=== PATIENT | male | born 1955 | race Caucasian/White ===

== ENCOUNTER 2018-01-08 18:38 | Emergency (ER) | payer OTHER ==
[~2018-01-08] VITALS: Ht 175.3 cm; Wt 126.0 kg
[2018-01-08 18:42] VITALS: BP 156/79
[2018-01-08 19:21] LABS: BASOPHILS # (AUTO) 0.03 x10^3/uL (0-0.1); BASOPHILS % (AUTO) 0 % (0-1); EOSINOPHILS # (AUTO) 0.13 x10^3/uL (0-0.4); EOSINOPHILS % (AUTO) 2 % (1-7); LYMPHOCYTES # (AUTO) 1.88 x10^3/uL (1-3.4); LYMPHOCYTES % (AUTO) 24 % (22-44); MD NO; MEAN CORPUSCULAR HEMOGLOBIN 30.9 pg (27.5-34.5); MEAN CORPUSCULAR HGB CONC 33.5 g/dL (33.2-36.2); MEAN CORPUSCULAR VOLUME 92.2 fL (81-97); MEAN PLATELET VOLUME 7.4 fL (7.4-10.4); MONOCYTES # (AUTO) 0.54 x10^3/uL (0.2-0.8); MONOCYTES % (AUTO) 7 % (2-9); NEUTROPHILS % (AUTO) 67 % (42-75); PLATELET COUNT 237 x10^3/uL (130-400); RED CELL DISTRIBUTION WIDTH 14.4 % (9.4-14.8)
[2018-01-08 19:28] LABS: ALANINE AMINOTRANSFERASE 32 U/L (12-78); ALBUMIN 3.2 g/dL (3.4-5.0); ANION GAP 10 mmol/L (5-15); CALCIUM 9.7 mg/dL (8.5-10.1); CHLORIDE 108 mmol/L (98-107); CREATININE 1.39 mg/dL (0.7-1.3)
[2018-01-08 19:35] LABS: ALKALINE PHOSPHATASE 58 U/L (45-117); BILIRUBIN,TOTAL 0.5 mg/dL (0.2-1.0); TOTAL PROTEIN 7.5 g/dL (6.4-8.2)
== END 2018-01-08 20:58 | disposition home or self-care (01) ==
LOC: ED 20:45
DX: L03.116 Cellulitis of left lower limb (principal)
CPT/HCPCS: 36415; 80053; 85025; 85651; 86140; 87040; 99285

== ENCOUNTER 2018-01-10 10:11 | Inpatient (IN) | payer OTHER ==
[~2018-01-10] VITALS: Ht 175.3 cm; Wt 127.9 kg
[2018-01-10] MEDS ORDERED: ROSU20TA PO (10:45)
[2018-01-10] MEDS ORDERED: TERA5CAP3 PO (10:45)
[2018-01-10] MEDS ORDERED: LOSA1TAB22 PO (10:45)
[2018-01-10] MEDS ORDERED: CHOL200074 PO (10:45)
[2018-01-10] MEDS ORDERED: ACYC-114 PO (10:45)
[2018-01-10] MEDS ORDERED: MELA3TAB2 PO (10:45)
[2018-01-10] MEDS ORDERED: LATA7.5D OP (10:45)
[2018-01-10] MEDS ORDERED: ALBU18HF INH (10:46)
[2018-01-10] MEDS ORDERED: SULF-169 PO (10:46)
[2018-01-10] MEDS ORDERED: [UNRECOGNIZED DRUG - CODE] TP (10:46)
[2018-01-10] MEDS ORDERED: AMPICILLIN/SULBACTAM 3 GM in SODIUM CHLORIDE 0.9% 100 ML IVPB ONE (11:00)
[2018-01-10 11:23] LABS: MD NO
[2018-01-10 11:34] LABS: ALBUMIN 3.2 g/dL (3.4-5.0); ANION GAP 9 mmol/L (5-15); CALCIUM 8.5 mg/dL (8.5-10.1); CHLORIDE 107 mmol/L (98-107); CREATININE 1.38 mg/dL (0.7-1.3)
[2018-01-10 11:59] LABS: BASOPHILS # (AUTO) 0.04 x10^3/uL (0-0.1); BASOPHILS % (AUTO) 1 % (0-1); EOSINOPHILS % (AUTO) 1 % (1-7); LYMPHOCYTES # (AUTO) 1.79 x10^3/uL (1-3.4); LYMPHOCYTES % (AUTO) 21 % (22-44); MEAN CORPUSCULAR HGB CONC 33.9 g/dL (33.2-36.2); MEAN CORPUSCULAR VOLUME 91.6 fL (81-97); MEAN PLATELET VOLUME 7.7 fL (7.4-10.4); MONOCYTES # (AUTO) 0.56 x10^3/uL (0.2-0.8); MONOCYTES % (AUTO) 7 % (2-9); NEUTROPHILS # (AUTO) 5.92 x10^3/uL (1.8-6.8); NEUTROPHILS % (AUTO) 70 % (42-75); PLATELET COUNT 280 x10^3/uL (130-400); RED CELL DISTRIBUTION WIDTH 14.4 % (9.4-14.8)
[2018-01-10 12:46] VITALS: BP 152/70
[2018-01-10] MEDS ORDERED: VANCOMYCIN PER PHARMACY MC PRN (14:30)
[2018-01-10] MEDS ORDERED: PHARMACY MAY ADJ FOR RENAL FX MC PRN (14:30)
[2018-01-10] MEDS ORDERED: OXYcodone IR 5MG TABLET PO PRN (15:00)
[2018-01-10] MEDS ORDERED: ACETAMINOPHEN 325 MG TABLET PO PRN (15:00)
[2018-01-10] MEDS: SODIUM CHLORIDE 0.9% 1,000 ML IV SCH (15:17)
[2018-01-10] MEDS: ENOXAPARIN 40 MG/0.4 ML SQ SCH (15:17)
[2018-01-10] MEDS ORDERED: PHARMACOKINETIC MONITORING MC PRN (15:30)
[2018-01-10] MEDS ORDERED: VANCOMYCIN 2,000 MG in SODIUM CHLORIDE 0.9% 500 ML IV SCH (16:00)
[2018-01-10] MEDS: LACTOBACILLUS CHEW TABLET PO SCH ×2 (16:34→21:20)
[2018-01-10 19:21] VITALS: BP 137/77
[2018-01-10] MEDS: TERAZOSIN 5MG CAPSULE PO SCH (21:11)
[2018-01-10] MEDS: AMPICILLIN/SULBACTAM 3 GM in SODIUM CHLORIDE 0.9% 100 ML IV SCH (21:11)
[2018-01-10] MEDS: MELATONIN 3 MG TABLET PO SCH (21:12)
[2018-01-10] MEDS: ATORVASTATIN 40 MG TABLET PO SCH (21:12)
[2018-01-10] MEDS: LATANOPROST OPHTH 0.005%, 2.5ML OP SCH (22:42)
[2018-01-11 01:38] VITALS: BP 128/75
[2018-01-11] MEDS: AMPICILLIN/SULBACTAM 3 GM in SODIUM CHLORIDE 0.9% 100 ML IV SCH ×4 (03:00→21:10)
[2018-01-11] MEDS: SODIUM CHLORIDE 0.9% 1,000 ML IV SCH ×2 (03:04→21:11)
[2018-01-11 05:06] LABS: BASOPHILS # (AUTO) 0.04 x10^3/uL (0-0.1); BASOPHILS % (AUTO) 1 % (0-1); EOSINOPHILS # (AUTO) 0.13 x10^3/uL (0-0.4); EOSINOPHILS % (AUTO) 2 % (1-7); LYMPHOCYTES # (AUTO) 2.04 x10^3/uL (1-3.4); LYMPHOCYTES % (AUTO) 30 % (22-44); MD NO; MEAN CORPUSCULAR HEMOGLOBIN 30.8 pg (27.5-34.5); MEAN CORPUSCULAR HGB CONC 33.3 g/dL (33.2-36.2); MEAN CORPUSCULAR VOLUME 92.6 fL (81-97); MONOCYTES % (AUTO) 7 % (2-9); NEUTROPHILS # (AUTO) 4.01 x10^3/uL (1.8-6.8); NEUTROPHILS % (AUTO) 60 % (42-75); PLATELET COUNT 261 x10^3/uL (130-400); RED BLOOD COUNT 4.88 x10^6/uL (4.38-5.82); RED CELL DISTRIBUTION WIDTH 14.7 % (9.4-14.8)
[2018-01-11 05:11] LABS: ALBUMIN 2.7 g/dL (3.4-5.0); ANION GAP 10 mmol/L (5-15); CALCIUM 8.3 mg/dL (8.5-10.1); CHLORIDE 109 mmol/L (98-107)
[2018-01-11 05:14] LABS: ALANINE AMINOTRANSFERASE 25 U/L (12-78); ALKALINE PHOSPHATASE 51 U/L (45-117); BILIRUBIN,TOTAL 0.6 mg/dL (0.2-1.0); CREATININE 1.36 mg/dL (0.7-1.3); TOTAL PROTEIN 6.7 g/dL (6.4-8.2)
[2018-01-11 07:29] VITALS: BP 134/80
[2018-01-11] MEDS: CHOLECALCIFEROL 1,000 UNIT TABLET PO SCH (08:10)
[2018-01-11] MEDS: LACTOBACILLUS CHEW TABLET PO SCH ×3 (08:10→21:11)
[2018-01-11] MEDS: ACYCLOVIR 400 MG TABLET PO SCH (08:11)
[2018-01-11 08:30] VITALS: BP 143/77
[2018-01-11] MEDS: VANCOMYCIN 2,000 MG in SODIUM CHLORIDE 0.9% 500 ML IV SCH (12:24)
[2018-01-11 13:00] VITALS: BP 151/69
[2018-01-11] MEDS: ENOXAPARIN 40 MG/0.4 ML SQ SCH (15:34)
[2018-01-11 20:00] VITALS: BP 116/70
[2018-01-11] MEDS: MELATONIN 3 MG TABLET PO SCH (21:11)
[2018-01-11] MEDS: TERAZOSIN 5MG CAPSULE PO SCH (21:11)
[2018-01-11] MEDS: ATORVASTATIN 40 MG TABLET PO SCH (21:11)
[2018-01-11] MEDS: LATANOPROST OPHTH 0.005%, 2.5ML OP SCH (21:13)
[2018-01-12] MEDS: VANCOMYCIN 2,000 MG in SODIUM CHLORIDE 0.9% 500 ML IV SCH ×2 (00:03→12:08)
[2018-01-12] MEDS: AMPICILLIN/SULBACTAM 3 GM in SODIUM CHLORIDE 0.9% 100 ML IV SCH ×3 (03:30→15:26)
[2018-01-12 03:48] VITALS: BP 135/78
[2018-01-12 07:10] VITALS: BP 125/76
[2018-01-12 07:10] LABS: CALCIUM 8.3 mg/dL (8.5-10.1); CHLORIDE 113 mmol/L (98-107)
[2018-01-12 07:14] LABS: ANION GAP 8 mmol/L (5-15); CREATININE 1.13 mg/dL (0.7-1.3)
[2018-01-12] MEDS: CHOLECALCIFEROL 1,000 UNIT TABLET PO SCH (08:22)
[2018-01-12] MEDS: ACYCLOVIR 400 MG TABLET PO SCH (08:22)
[2018-01-12] MEDS: LACTOBACILLUS CHEW TABLET PO SCH (08:22)
[2018-01-12] MEDS ORDERED: ACID1TAB3 PO (11:40)
[2018-01-12] MEDS ORDERED: DOXY100T PO (11:40)
[2018-01-12] MEDS ORDERED: AMOX1TAB64 PO (11:40)
[2018-01-12] MEDS: SODIUM CHLORIDE 0.9% 1,000 ML IV SCH (12:09)
[2018-01-12 14:59] VITALS: BP 146/78
[2018-01-12] MEDS: ENOXAPARIN 40 MG/0.4 ML SQ SCH (15:00)
== END 2018-01-12 16:15 | disposition home or self-care (01) | DRG 602 ==
LOC: ED 10:38 → EDIP 11:40 → 3NE 12:36 → DCLOUNGE 01-12 16:13
PROVIDERS: ADMIT Internal Medicine; ATTEND Internal Medicine
PROC: 5A09357 Assistance with Respiratory Ventilation, Less than 24 Consecutive Hours, Continuous Positive Airway Pressure (ICD-10-PCS; principal; 2018-01-11)
DX: L03.116 Cellulitis of left lower limb (principal); N17.0 Acute kidney failure with tubular necrosis; E78.5 Hyperlipidemia, unspecified; G47.33 Obstructive sleep apnea (adult) (pediatric); H40.9 Unspecified glaucoma; I10 Essential (primary) hypertension; N40.0 Benign prostatic hyperplasia without lower urinary tract symptoms; Z82.49 Family history of ischemic heart disease and other diseases of the circulatory system
CPT/HCPCS: 36415; 80048; 80053; 82040; 85025; 96365; 99285; G0378; J0295; J1650; J3370; J7030; J7040